=== PATIENT | male | born 1960 | race Caucasian/White ===

== ENCOUNTER 2018-04-24 11:52 | Emergency (ER) | payer BC ==
[~2018-04-24] VITALS: Ht 172.7 cm; Wt 133.8 kg
[2018-04-24] MEDS ORDERED: OMEPRAZOLE40 MG PO (11:59)
[2018-04-24 14:05] VITALS: BP 150/98
== END 2018-04-24 14:06 | disposition home or self-care (01) ==
LOC: ER 11:52
DX: S61.212A Laceration without foreign body of right middle finger without damage to nail, initial encounter (principal); W26.8XXA Contact with other sharp object(s), not elsewhere classified, initial encounter; Y93.89 Activity, other specified; Y92.094 Garage of other non-institutional residence as the place of occurrence of the external cause; Y99.8 Other external cause status